=== PATIENT | male | born 1970 | race Caucasian/White ===

== ENCOUNTER 2021-03-28 09:19 | Emergency (ER) | payer MEDICAID, SELFPAY ==
[2021-03-28 09:19] VITALS: BP 155/78; PULSE 99; RESP 18; TEMP 35.6; O2SAT 98; BMI 29.5
--- NOTE | 2021-03-28 09:40 | ED.RN ---
Patient has mri and emg ordered to be done around -th of the month. Pain in L arm 11 on pain scale 0-10 per patient with shooting pain to ring and pinky finger. Alsi nn/t throughout entire forearm.
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
[2021-03-28] MEDS: HYDROcodone Bitartrate/Apap 5/325 Tablet PO (10:26)
== END 2021-03-28 10:28 | disposition home or self-care (01) ==
PROVIDERS: Emergency Provider Emergency Medicine
DX: G62.9 Polyneuropathy, unspecified (principal); F17.210 Nicotine dependence, cigarettes, uncomplicated
CPT/HCPCS: 99281